=== PATIENT | female | born 1980 | race Caucasian/White ===

== ENCOUNTER 2024-06-24 19:27 | Emergency (ER) | payer OTHER ==
[~2024-06-24] VITALS: Ht 157.5 cm; Wt 81.6 kg
[2024-06-24 19:40] VITALS: BP_SYST 106; PULSE 107; RESP 20; TEMP 98.5; O2SAT 97
[2024-06-24] MEDS ORDERED: HYDR-3917 PO (20:31)
[2024-06-24] MEDS ORDERED: CEPH-548 PO (20:31)
[2024-06-24] MEDS ORDERED: IBUP-1971 PO (20:31)
[2024-06-24] MEDS: KETOROLAC TROMETHAMINE 60 MG/2 ML VIAL IM ONE (20:34)
[2024-06-24 21:07] VITALS: BP_SYST 106; PULSE 107; RESP 20; TEMP 98.5; O2SAT 97
== END 2024-06-24 21:07 | disposition home or self-care (01) ==
LOC: SED 19:27
DX: L03.115 Cellulitis of right lower limb (principal); F12.90 Cannabis use, unspecified, uncomplicated
CPT/HCPCS: 99283; 96372; J1885